=== PATIENT | male | born 1960 | race Caucasian/White ===

== ENCOUNTER 2022-02-08 20:44 | Inpatient (IN) | payer OTHER, SELFPAY ==
[2022-02-08 23:21] VITALS: BMI 24.7
[2022-02-09] MEDS ORDERED: Ondansetron PF 4 MG/2 ML Vial IVP PRN (01:43)
[2022-02-09] MEDS ORDERED: Piperacillin/Tazobactam 3.375 GM in Sodium Chloride 0.9% 100 ML IVPB SCH (02:00)
[2022-02-09] MEDS ORDERED: Vancomycin HCl 500 MG in Sodium Chloride 0.9% 100 ML IVPB SCH (03:00)
[2022-02-09 04:53] LABS: Anion Gap 15 mmol/L (10-20); BUN (Urea Nitrogen) 16 mg/dL (8.4-25.7); Calc. Creatinine Clearance 144 mL/min (70-130); Calcium 9.2 mg/dL (7.8-10.44); Carbon Dioxide 23 mmol/L (23-31); Chloride 103 mmol/L (98-107); Estimated GFR 111; Glucose 108 mg/dL (80-115); Potassium 3.6 mmol/L (3.5-5.1); Sodium 137 mmol/L (136-145)
[2022-02-09] MEDS: Piperacillin/Tazobactam 3.375 GM in Sodium Chloride 0.9% 100 ML IVPB SCH ×3 (06:00→21:28)
[2022-02-09] MEDS: Vancomycin 1.5 GRAM/300 ML BAG 1.5 GM in Premix Bag 1 BAG IVPB SCH ×2 (06:02→18:31)
[2022-02-09 06:09] LABS: Anisocytosis SLIGHT = 6-15 cells (100X) (0-5/hpf); Band 8 % (5-11); Hemoglobin 8.3 g/dL (14.0-18.0); Lymphocytes 9 % (21-51); MDiff Complete? YES; Mean Corpuscular HGB CONC 29.2 g/dL (32.0-36.0); Mean Corpuscular Hemoglobin 20.7 pg (27.0-31.0); Mean Corpuscular Volume 70.8 fL (78.0-98.0); Monocytes 2 % (0-10); Neutrophil 81 % (42-75); Platelet Count 832 thou/uL (130-400); Platelet Morphology Comment Appears Increased; RBC Distribution Width 15.3 % (11.5-14.5); Red Blood Cell (RBC) Count 3.99 mill/uL (4.70-6.10); White Blood Cell (WBC) Count 26.6 thou/uL (4.8-10.8)
[2022-02-09] MEDS ORDERED: Enoxaparin Sodium 40 MG/0.4 ML SYRINGE SC SCH (09:00)
[2022-02-09] MEDS: Tuberculin PPD 0.1 ML VIAL I-DERMAL SCH (09:15)
[2022-02-09] MEDS ORDERED: Cefepime 2 GM in Sodium Chloride 0.9% 100 ML IVPB SCH (10:00)
[2022-02-09] MEDS ORDERED: Lidocaine 1% (PF) 30 ML VIAL NERVE BLCK SCH (10:30)
[2022-02-09 10:47] LABS: Fluid, pH - Pleural Fld Greater than 7.50 (7.60 - 7.66)
[2022-02-09 11:30] LABS: Pleural Fluid, Protein 4.1 g/dL
[2022-02-09 11:36] LABS: RBC Count-Automated (BF) 10685 /cu.mm; WBC/Nucleated-Auto (BF) 1761 /cu.mm
[2022-02-09 11:39] LABS: BF Color Pink; Body Fluid Source Thoracentesis Fluid; Clarity Hazy (Clear); Tube # EDTA
[2022-02-09] MEDS ORDERED: Vancomycin 1.5 GRAM/300 ML BAG 1.5 GM in Premix Bag 1 BAG IVPB SCH (12:00)
[2022-02-09 12:13] LABS: BF Segmented Neutrophils 75 %; Cell Count Non Hematic 6 %; Lymphocytes 19 %
[2022-02-09 17:30] LABS: Hep C IgG Ab Non-Reactive (NonReactive); Hep C Index 0.17 S/CO (0-0.79)
[2022-02-09 18:38] LABS: Syphilis Antibody Nonreactive (Nonreactive); Syphilis Antibody Index 0.37 S/CO (<1.00 Non-Reactive)
[2022-02-09] MEDS: Acetaminophen 325 MG TAB PO PRN (21:33)
[2022-02-10 04:47] LABS: INR-International Normal Ratio 1.3; PTT 40.1 sec (22.9-36.1); Prothrombin Time 16.6 sec (12.0-14.7)
[2022-02-10 05:04] LABS: Anion Gap 15 mmol/L (10-20); BUN (Urea Nitrogen) 15 mg/dL (8.4-25.7); Calc. Creatinine Clearance 161 mL/min (70-130); Calcium 9.3 mg/dL (7.8-10.44); Carbon Dioxide 23 mmol/L (23-31); Chloride 102 mmol/L (98-107); Estimated GFR 115; Glucose 100 mg/dL (80-115); Potassium 3.5 mmol/L (3.5-5.1); Sodium 136 mmol/L (136-145)
[2022-02-10 05:11] LABS: Band 2 % (5-11); Hemoglobin 9.1 g/dL (14.0-18.0); Hypochromia SLIGHT = 6-15 cells (100X) (0-5/hpf); Lymphocytes 2 % (21-51); MDiff Complete? YES; Mean Corpuscular Hemoglobin 20.4 pg (27.0-31.0); Mean Corpuscular Volume 70.3 fL (78.0-98.0); Mean Platelet Volume 6.2 fL (7.4-10.4); Microcytosis SLIGHT = 6-15 cells (100X) (0-5/hpf); Monocytes 2 % (0-10); Neutrophil 94 % (42-75); Platelet Count 863 thou/uL (130-400); Platelet Morphology Comment Appears Increased; RBC Distribution Width 15.6 % (11.5-14.5); Red Blood Cell (RBC) Count 4.44 mill/uL (4.70-6.10); White Blood Cell (WBC) Count 30.1 thou/uL (4.8-10.8)
[2022-02-10 05:17] LABS: HIV (1/2) Antibody/Antigen Non-Reactive (NonReactive); HIV 1/2 INDEX 0.17 S/CO (<1.00)
[2022-02-10] MEDS: Piperacillin/Tazobactam 3.375 GM in Sodium Chloride 0.9% 100 ML IVPB SCH ×3 (05:37→22:11)
[2022-02-10] MEDS: Vancomycin 1.5 GRAM/300 ML BAG 1.5 GM in Premix Bag 1 BAG IVPB SCH (05:52)
[2022-02-10] MEDS ORDERED: VANCOMYCIN 1.25 GM/250 ML BAG 1.25 GM in Premix Bag 1 BAG IVPB SCH (06:00)
[2022-02-10] MEDS: Acetaminophen 325 MG TAB PO PRN ×2 (06:05→16:24)
[2022-02-10] MEDS: Enoxaparin Sodium 40 MG/0.4 ML SYRINGE SC SCH (09:01)
[2022-02-10] MEDS: Tuberculin PPD 0.1 ML VIAL I-DERMAL SCH (09:04)
[2022-02-10] MEDS: VANCOMYCIN 1.25 GM/250 ML BAG 1.25 GM in Premix Bag 1 BAG IVPB SCH ×2 (14:13→22:11)
[2022-02-11] MEDS: Acetaminophen 325 MG TAB PO PRN ×3 (00:14→21:23)
[2022-02-11 05:51] LABS: Anion Gap 15 mmol/L (10-20); BUN (Urea Nitrogen) 14 mg/dL (8.4-25.7); Calc. Creatinine Clearance 142 mL/min (70-130); Calcium 9.2 mg/dL (7.8-10.44); Carbon Dioxide 25 mmol/L (23-31); Chloride 102 mmol/L (98-107); Estimated GFR 110; Glucose 110 mg/dL (80-115); Potassium 3.2 mmol/L (3.5-5.1); Sodium 139 mmol/L (136-145); Vancomycin, Trough 15.3 ug/mL
[2022-02-11] MEDS: VANCOMYCIN 1.25 GM/250 ML BAG 1.25 GM in Premix Bag 1 BAG IVPB SCH (06:27)
[2022-02-11] MEDS: Piperacillin/Tazobactam 3.375 GM in Sodium Chloride 0.9% 100 ML IVPB SCH ×3 (06:28→21:32)
[2022-02-11 06:49] LABS: Band 13 % (5-11); Hemoglobin 9.3 g/dL (14.0-18.0); Lymphocytes 5 % (21-51); MDiff Complete? YES; Mean Corpuscular HGB CONC 28.9 g/dL (32.0-36.0); Mean Corpuscular Hemoglobin 20.6 pg (27.0-31.0); Mean Corpuscular Volume 71.1 fL (78.0-98.0); Mean Platelet Volume 6.5 fL (7.4-10.4); Monocytes 1 % (0-10); Neutrophil 81 % (42-75); Platelet Count 852 thou/uL (130-400); Platelet Morphology Comment Appears Increased; RBC Distribution Width 15.7 % (11.5-14.5); Red Blood Cell (RBC) Count 4.49 mill/uL (4.70-6.10); White Blood Cell (WBC) Count 29.7 thou/uL (4.8-10.8)
[2022-02-11] MEDS ORDERED: Potassium Chloride 20 MEQ TAB PO SCH (08:00)
[2022-02-11] MEDS: Enoxaparin Sodium 40 MG/0.4 ML SYRINGE SC SCH (08:40)
[2022-02-11] MEDS: Multivit, Therapeutic 1 TAB PO SCH (08:40)
[2022-02-11] MEDS: Tuberculin PPD 0.1 ML VIAL I-DERMAL SCH (08:41)
[2022-02-12] MEDS: Piperacillin/Tazobactam 3.375 GM in Sodium Chloride 0.9% 100 ML IVPB SCH ×3 (05:08→21:40)
[2022-02-12 05:27] LABS: Hemoglobin 8.9 g/dL (14.0-18.0); Mean Corpuscular HGB CONC 27.8 g/dL (32.0-36.0); Mean Corpuscular Hemoglobin 19.9 pg (27.0-31.0); Mean Corpuscular Volume 71.6 fL (78.0-98.0); Mean Platelet Volume 6.3 fL (7.4-10.4); Platelet Count 842 thou/uL (130-400); RBC Distribution Width 15.9 % (11.5-14.5); White Blood Cell (WBC) Count 31.4 thou/uL (4.8-10.8)
[2022-02-12 05:46] LABS: Anion Gap 15 mmol/L (10-20); BUN (Urea Nitrogen) 15 mg/dL (8.4-25.7); Calc. Creatinine Clearance 152 mL/min (70-130); Calcium 9.5 mg/dL (7.8-10.44); Carbon Dioxide 25 mmol/L (23-31); Chloride 100 mmol/L (98-107); Estimated GFR 113; Glucose 99 mg/dL (80-115); Potassium 3.3 mmol/L (3.5-5.1); Sodium 137 mmol/L (136-145)
[2022-02-12] MEDS: Tuberculin PPD 0.1 ML VIAL I-DERMAL SCH (08:32)
[2022-02-12] MEDS: Multivit, Therapeutic 1 TAB PO SCH (08:33)
[2022-02-12] MEDS: Acetaminophen 325 MG TAB PO PRN ×2 (08:49→19:39)
[2022-02-12] MEDS ORDERED: Lidocaine 4% PF 5 ML AMP NEB SCH (11:00)
[2022-02-12] MEDS: Sodium Chloride 0.9% 1,000 ML IV SCH (14:53)
[2022-02-12] MEDS ORDERED: Sodium Bicarbonate 2.5 MEQ/5 ML VIAL ONE (15:10)
[2022-02-12] MEDS ORDERED: Fentanyl 100 MCG/2 ML VIAL ONE (15:11)
[2022-02-12] MEDS ORDERED: Midazolam HCl 2 mg/2 ml Vial ONE (15:11)
[2022-02-13] MEDS: Sodium Chloride 0.9% 1,000 ML IV SCH (06:30)
[2022-02-13] MEDS: Piperacillin/Tazobactam 3.375 GM in Sodium Chloride 0.9% 100 ML IVPB SCH ×3 (06:30→21:07)
[2022-02-13 06:44] LABS: Anion Gap 13 mmol/L (10-20); BUN (Urea Nitrogen) 14 mg/dL (8.4-25.7); Calc. Creatinine Clearance 168 mL/min (70-130); Calcium 9.2 mg/dL (7.8-10.44); Carbon Dioxide 26 mmol/L (23-31); Chloride 101 mmol/L (98-107); Estimated GFR 116; Glucose 112 mg/dL (80-115); Potassium 3.1 mmol/L (3.5-5.1); Sodium 137 mmol/L (136-145)
[2022-02-13 06:46] LABS: Hemoglobin 8.5 g/dL (14.0-18.0); Mean Corpuscular Hemoglobin 20.6 pg (27.0-31.0); Mean Corpuscular Volume 71.1 fL (78.0-98.0); Mean Platelet Volume 6.3 fL (7.4-10.4); Platelet Count 810 thou/uL (130-400); RBC Distribution Width 15.5 % (11.5-14.5); Red Blood Cell (RBC) Count 4.13 mill/uL (4.70-6.10)
[2022-02-13 06:57] LABS: Band 8 % (5-11); Lymphocytes 1 % (21-51); MDiff Complete? YES; Monocytes 5 % (0-10); Neutrophil 86 % (42-75); Platelet Morphology Comment Appears Adequate
[2022-02-13] MEDS: Multivit, Therapeutic 1 TAB PO SCH (08:06)
[2022-02-13] MEDS: Enoxaparin Sodium 40 MG/0.4 ML SYRINGE SC SCH ×2 (08:06→13:59)
[2022-02-13] MEDS ORDERED: fentaNYL Citrate/PF 100 MCG/2 ML SYRINGE ONE (10:55)
[2022-02-13] MEDS ORDERED: Ondansetron PF 4 MG/2 ML Vial ONE (11:30)
[2022-02-13] MEDS ORDERED: Succinylcholine 200 MG/10 ml SYRINGE FS ONE (11:30)
[2022-02-13] MEDS ORDERED: PROPOFOL 200 MG/20 ML VIAL ONE (11:30)
[2022-02-13] MEDS ORDERED: Albuterol Sulfate 1.25 MG/3 ML NEB ONE (12:17)
[2022-02-13] MEDS ORDERED: Albuterol Sulfate 2.5 mg/3 ml Neb ONE (12:17)
[2022-02-13] MEDS ORDERED: Ondansetron HCl/PF 4 MG/2 ML Vial IVP PRN (12:35)
[2022-02-13] MEDS ORDERED: Promethazine HCl 25 MG/ML VIAL IM PRN (12:35)
[2022-02-13] MEDS ORDERED: Promethazine HCl 25 MG/ML VIAL IVPB PRN (12:35)
[2022-02-13] MEDS: Potassium Chloride 20 MEQ TAB PO SCH ×2 (13:59→17:16)
[2022-02-13] MEDS: Acetaminophen 325 MG TAB PO PRN ×2 (13:59→22:21)
[2022-02-13 19:53] LABS: Body Fluid Source Abscess Fluid
[2022-02-13 19:54] LABS: BF Color Red; Clarity Cloudy/Turbid (Clear); Tube # SYRINGE
[2022-02-14] MEDS: Sodium Chloride 0.9% 1,000 ML IV SCH ×2 (03:00→20:02)
[2022-02-14] MEDS: Piperacillin/Tazobactam 3.375 GM in Sodium Chloride 0.9% 100 ML IVPB SCH ×3 (06:15→21:06)
[2022-02-14 09:30] LABS: Mean Corpuscular HGB CONC 27.2 g/dL (32.0-36.0); Mean Corpuscular Hemoglobin 19.4 pg (27.0-31.0); Mean Corpuscular Volume 71.1 fL (78.0-98.0); Mean Platelet Volume 6.6 fL (7.4-10.4); Platelet Count 901 thou/uL (130-400); RBC Distribution Width 15.9 % (11.5-14.5); Red Blood Cell (RBC) Count 4.65 mill/uL (4.70-6.10)
[2022-02-14 09:31] LABS: Anion Gap 13 mmol/L (10-20); BUN (Urea Nitrogen) 11 mg/dL (8.4-25.7); Calc. Creatinine Clearance 152 mL/min (70-130); Calcium 9.7 mg/dL (7.8-10.44); Carbon Dioxide 29 mmol/L (23-31); Chloride 101 mmol/L (98-107); Estimated GFR 113; Glucose 86 mg/dL (80-115); Potassium 3.8 mmol/L (3.5-5.1); Sodium 139 mmol/L (136-145)
[2022-02-14] MEDS: Acetaminophen 325 MG TAB PO PRN ×3 (09:41→20:02)
[2022-02-14] MEDS: Multivit, Therapeutic 1 TAB PO SCH (09:42)
[2022-02-14] MEDS: Enoxaparin Sodium 40 MG/0.4 ML SYRINGE SC SCH (09:42)
[2022-02-14 11:17] LABS: Band 1 % (5-11); Hypochromia SLIGHT = 6-15 cells (100X) (0-5/hpf); Lymphocytes 5 % (21-51); MDiff Complete? YES; Microcytosis MODERATE=15-30 cells (100X) (0-5/hpf); Monocytes 2 % (0-10); Neutrophil 92 % (42-75); Platelet Morphology Comment Appears Increased; Polychromasia SLIGHT = 2-3 cells (100X) (0-2/hpf)
[2022-02-14 16:13] LABS: QuantiFERON-TB Gold Plus Negative (Negative)
[2022-02-15] MEDS: Acetaminophen 325 MG TAB PO PRN ×3 (02:57→19:24)
[2022-02-15] MEDS: Piperacillin/Tazobactam 3.375 GM in Sodium Chloride 0.9% 100 ML IVPB SCH ×3 (05:46→21:28)
[2022-02-15 06:21] LABS: #Lymphocytes 1.4 thou/uL (1.20-3.40); #Monocytes 1.2 thou/uL (0.11-0.59); #Neutrophils 19.1 thou/uL (1.40-6.50); %Basophils 0.1 % (0.0-1.0); %Eosinophils 0.2 % (0.0-10.0); %Lymphocytes 6.4 % (21.0-51.0); %Monocytes 5.6 % (0.0-10.0); %Neutrophils 87.8 % (42.0-75.0); Hemoglobin 8.6 g/dL (14.0-18.0); Mean Corpuscular HGB CONC 29.2 g/dL (32.0-36.0); Mean Corpuscular Hemoglobin 20.5 pg (27.0-31.0); Mean Corpuscular Volume 70.4 fL (78.0-98.0); Mean Platelet Volume 6.4 fL (7.4-10.4); Platelet Count 789 thou/uL (130-400); RBC Distribution Width 15.7 % (11.5-14.5); Red Blood Cell (RBC) Count 4.19 mill/uL (4.70-6.10); White Blood Cell (WBC) Count 21.8 thou/uL (4.8-10.8)
[2022-02-15 06:22] LABS: Anion Gap 12 mmol/L (10-20); BUN (Urea Nitrogen) 9 mg/dL (8.4-25.7); Calc. Creatinine Clearance 168 mL/min (70-130); Calcium 8.9 mg/dL (7.8-10.44); Carbon Dioxide 28 mmol/L (23-31); Chloride 101 mmol/L (98-107); Estimated GFR 116; Glucose 100 mg/dL (80-115); Potassium 3.2 mmol/L (3.5-5.1); Sodium 138 mmol/L (136-145)
[2022-02-15] MEDS: Enoxaparin Sodium 40 MG/0.4 ML SYRINGE SC SCH (09:04)
[2022-02-15] MEDS: Multivit, Therapeutic 1 TAB PO SCH (09:04)
[2022-02-15] MEDS: HYDROcodone/Acetaminophen 5/325 mg Tablet PO PRN ×2 (10:47→22:23)
[2022-02-15] MEDS ORDERED: Potassium Chloride 20 MEQ TAB PO SCH (14:30)
[2022-02-15] MEDS: Sodium Chloride 0.9% 1,000 ML IV SCH (21:28)
[2022-02-16] MEDS: Acetaminophen 325 MG TAB PO PRN (05:14)
[2022-02-16] MEDS: Piperacillin/Tazobactam 3.375 GM in Sodium Chloride 0.9% 100 ML IVPB SCH ×2 (05:19→15:19)
[2022-02-16 06:49] LABS: #Basophils 0.1 thou/uL (0.0-0.2); #Lymphocytes 1.5 thou/uL (1.20-3.40); #Monocytes 1.4 thou/uL (0.11-0.59); #Neutrophils 23.3 thou/uL (1.40-6.50); %Basophils 0.3 % (0.0-1.0); %Eosinophils 0.1 % (0.0-10.0); %Lymphocytes 5.6 % (21.0-51.0); %Monocytes 5.2 % (0.0-10.0); %Neutrophils 88.8 % (42.0-75.0); Hemoglobin 8.4 g/dL (14.0-18.0); Mean Corpuscular HGB CONC 29.4 g/dL (32.0-36.0); Mean Corpuscular Hemoglobin 20.6 pg (27.0-31.0); Mean Platelet Volume 6.4 fL (7.4-10.4); Platelet Count 806 thou/uL (130-400); RBC Distribution Width 15.8 % (11.5-14.5); White Blood Cell (WBC) Count 26.2 thou/uL (4.8-10.8)
[2022-02-16 06:52] LABS: Anion Gap 13 mmol/L (10-20); BUN (Urea Nitrogen) 8 mg/dL (8.4-25.7); Calc. Creatinine Clearance 155 mL/min (70-130); Calcium 9.6 mg/dL (7.8-10.44); Carbon Dioxide 28 mmol/L (23-31); Chloride 101 mmol/L (98-107); Estimated GFR 113; Glucose 94 mg/dL (80-115); Potassium 3.6 mmol/L (3.5-5.1); Sodium 138 mmol/L (136-145)
[2022-02-16] MEDS: Multivit, Therapeutic 1 TAB PO SCH (08:33)
[2022-02-16] MEDS: Enoxaparin Sodium 40 MG/0.4 ML SYRINGE SC SCH (08:33)
[2022-02-16 15:16] VITALS: BP 160/72; TEMP 98
== END 2022-02-16 15:44 | disposition home or self-care (01) | DRG 177 ==
LOC: 2SW 21:58 → T4-B 02-12 14:42
PROVIDERS: ADMIT Internal Medicine; ATTEND Internal Medicine
PROC: 0W993ZZ Drainage of Right Pleural Cavity, Percutaneous Approach (ICD-10-PCS; 2022-02-08)
PROC: 0F923ZZ Drainage of Left Lobe Liver, Percutaneous Approach (ICD-10-PCS; 2022-02-12)
PROC: 0B938ZZ Drainage of Right Main Bronchus, Via Natural or Artificial Opening Endoscopic (ICD-10-PCS; principal; 2022-02-13)
PROC: 0BB38ZZ Excision of Right Main Bronchus, Via Natural or Artificial Opening Endoscopic (ICD-10-PCS; 2022-02-13)
DX: J86.9 Pyothorax without fistula (principal); K75.0 Abscess of liver; J18.9 Pneumonia, unspecified organism; C78.7 Secondary malignant neoplasm of liver and intrahepatic bile duct; C34.01 Malignant neoplasm of right main bronchus; J90 Pleural effusion, not elsewhere classified; C79.31 Secondary malignant neoplasm of brain; Z51.5 Encounter for palliative care; Z20.822 Contact with and (suspected) exposure to COVID-19; I10 Essential (primary) hypertension; F17.210 Nicotine dependence, cigarettes, uncomplicated; D75.838 Other thrombocytosis; F10.10 Alcohol abuse, uncomplicated; R13.10 Dysphagia, unspecified
CPT/HCPCS: 36415; 47010; 70553; 77002; 80048; 80202; 82150; 82945; 83615; 83986; 84157; 84478; 85025; 85027; 85060; 85610; 85730; 86480; 86580; 86780; 86803; 87070; 87077; 87102; 87116; 87186; 87205; 87206; 87324; 87389; 87449; 88112; 88305; 88312; 88341; 88342; 89051; 93005; 93010; C1729; J1650; J2001; J2250; J2405; J2543; J2704; J3010; J3370; J3490; J7050; J7611

== ENCOUNTER 2022-06-13 08:27 | Day surgery (SDC) | payer OTHER ==
[2022-06-13] MEDS ORDERED: Acetaminophen 500 MG TAB ONE (09:38)
[2022-06-13] MEDS ORDERED: diphenhydrAMINE 25 MG CAP ONE (09:38)
[2022-06-13 12:53] VITALS: BP 175/83; TEMP 97.6
== END 2022-06-13 13:16 | disposition home or self-care (01) ==
LOC: ONC/OP 08:27
PROVIDERS: ATTEND Internal Medicine Hematology & Oncology
PROC: 30233N1 Transfusion of Nonautologous Red Blood Cells into Peripheral Vein, Percutaneous Approach (ICD-10-PCS; principal; 2022-06-13)
DX: D64.9 Anemia, unspecified (principal); D69.6 Thrombocytopenia, unspecified
CPT/HCPCS: 36430; 86850; 86900; 86901; P9016

== ENCOUNTER 2022-06-25 18:53 | Emergency (ER) | payer OTHER ==
[~2022-06-25 18:53] MED LIST: Iopamidol-370 76% 500 ML 1 ML ONE
[2022-06-25 20:16] LABS: Mean Corpuscular HGB CONC 35.3 g/dL (32.0-36.0); Mean Corpuscular Hemoglobin 26.6 pg (27.0-31.0); Mean Corpuscular Volume 75.4 fl (78.0-98.0); Mean Platelet Volume 8.2 fL (7.4-10.4); Platelet Count 399 10x3/uL (130-400); RBC Distribution Width 27.7 % (11.5-14.5)
[2022-06-25 20:33] LABS: Anisocytosis MODERATE=16-30 cells (100X) (0-5/hpf); Band 33 % (5-11); Hypochromia SLIGHT = 6-15 cells (100X) (0-5/hpf); Lymphocytes 18 % (21-51); MDiff Complete? YES; Metamyelocyte 2 % (0-0); Microcytosis SLIGHT = 6-15 cells (100X) (0-5/hpf); Monocytes 13 % (0-10); Myelocyte 2 % (0-0); Neutrophil 30 % (42-75); Platelet Morphology Comment Appears Adequate; Polychromasia SLIGHT = 2-3 cells (100X) (0-2/hpf); Promyelocytes 1 % (0-0); Spherocytes SLIGHT = 1-5 cells (100X) (None Seen); Tear Drops SLIGHT = 2-5 cells (100X) (0-1/hpf); Toxic Granulation SLIGHT
[2022-06-25 20:42] LABS: ALT (SGPT) Less than 7 U/L (8-55); AST (SGOT) 13 U/L (5-34); Albumin 3.2 g/dL (3.4-4.8); Alkaline Phosphatase 128 U/L (40-110); Anion Gap 17 mmol/L (10-20); BUN (Urea Nitrogen) 24 mg/dL (8.4-25.7); Bilirubin, Total 0.6 mg/dL (0.2-1.2); Calc. Creatinine Clearance 0 mL/min (70-130); Calcium 8.4 mg/dL (7.8-10.44); Carbon Dioxide 23 mmol/L (23-31); Chloride 98 mmol/L (98-107); Estimated GFR 96; Globulin 3.9 g/dL (2.4-3.5); Glucose 163 mg/dL (80-115); Potassium 3.8 mmol/L (3.5-5.1); Protein, Total 7.1 g/dL (5.8-8.1); Sodium 134 mmol/L (136-145)
[2022-06-25] MEDS ORDERED: Vancomycin 1 GM/200 ML (FROZEN) BAG ONE (21:42)
[2022-06-25 21:54] LABS: INR-International Normal Ratio 1.1; Prothrombin Time 14.1 sec (12.0-14.7)
[2022-06-25 21:55] LABS: PTT 38.7 sec (22.9-36.1)
[2022-06-25 22:23] LABS: SARS-CoV-2 NAA Rapid Test DETECTED (NotDetected)
== END 2022-06-26 01:12 | disposition home or self-care (01) ==
LOC: ERS 18:53
DX: U07.1 COVID-19 (principal); J12.82 Pneumonia due to coronavirus disease 2019; C78.00 Secondary malignant neoplasm of unspecified lung; Z87.891 Personal history of nicotine dependence
CPT/HCPCS: 36415; 71045; 71275; 80053; 83605; 83880; 84484; 85025; 85610; 85730; 87040; 93005; 94760; 96374; J3370-JW; Q9967

== ENCOUNTER 2022-11-07 13:59 | Outpatient (CLI) | payer MEDICAID | END 2022-11-07 14:00 | disposition home or self-care (01) | LOC: SCSMRI 13:59 | PROVIDERS: ATTEND Internal Medicine Hematology & Oncology | DX: C34.81 Malignant neoplasm of overlapping sites of right bronchus and lung (principal); C78.7 Secondary malignant neoplasm of liver and intrahepatic bile duct; E83.52 Hypercalcemia; R90.82 White matter disease, unspecified | CPT/HCPCS: 70553 ==

== ENCOUNTER 2022-11-12 09:12 | Outpatient (CLI) | payer MEDICAID ==
[~2022-11-12 09:12] MED LIST changes: +Iopamidol 370 76% 100 ML VIAL ONE; -Iopamidol-370 76% 500 ML 1 ML ONE
== END 2022-11-12 09:13 | disposition home or self-care (01) ==
LOC: CT 09:12
PROVIDERS: ATTEND Internal Medicine Hematology & Oncology
DX: C34.81 Malignant neoplasm of overlapping sites of right bronchus and lung (principal); C78.7 Secondary malignant neoplasm of liver and intrahepatic bile duct; E83.52 Hypercalcemia; J86.0 Pyothorax with fistula; K76.89 Other specified diseases of liver
CPT/HCPCS: 71260; 74177; 78306; A9503; Q9967

== ENCOUNTER 2023-05-24 09:01 | Outpatient (CLI) | payer OTHER ==
[2023-05-24] MEDS ORDERED: Iopamidol 370 76% 100 ML VIAL ONE (12:58)
== END 2023-05-24 09:02 | disposition home or self-care (01) ==
LOC: CT 09:01
PROVIDERS: ATTEND Internal Medicine Hematology & Oncology
DX: C34.81 Malignant neoplasm of overlapping sites of right bronchus and lung (principal); C78.7 Secondary malignant neoplasm of liver and intrahepatic bile duct; R04.2 Hemoptysis; R91.8 Other nonspecific abnormal finding of lung field; R59.0 Localized enlarged lymph nodes
CPT/HCPCS: 71260; Q9967

== ENCOUNTER 2023-08-16 08:53 | Outpatient (CLI) | payer OTHER ==
[2023-08-16] MEDS ORDERED: Magnevist 469MG/ML 20 ML VIAL ONE (15:30)
== END 2023-08-16 08:54 | disposition home or self-care (01) ==
LOC: MRI 08:53
PROVIDERS: ATTEND Radiology Radiation Oncology
DX: C34.90 Malignant neoplasm of unspecified part of unspecified bronchus or lung (principal); C79.31 Secondary malignant neoplasm of brain; I67.89 Other cerebrovascular disease; M89.9 Disorder of bone, unspecified
CPT/HCPCS: 70553

== ENCOUNTER 2023-11-20 08:45 | Outpatient (CLI) | payer OTHER | END 2023-11-20 08:46 | disposition home or self-care (01) | LOC: PET 08:45 | PROVIDERS: ATTEND Internal Medicine Hematology & Oncology | DX: C34.81 Malignant neoplasm of overlapping sites of right bronchus and lung (principal); C78.7 Secondary malignant neoplasm of liver and intrahepatic bile duct; R91.8 Other nonspecific abnormal finding of lung field; R59.0 Localized enlarged lymph nodes | CPT/HCPCS: 78815; A9552 ==

== ENCOUNTER 2024-04-29 06:24 | Day surgery (SDC) | payer OTHER ==
[2024-04-28 10:21] VITALS: BMI 26.6
[2024-04-29] MEDS ORDERED: PROPOFOL 40 ML ONE (07:09)
[2024-04-29] MEDS ORDERED: GLYCOPYRROLATE/PF 0.2 MG/ML VIAL ONE (07:10)
[2024-04-29] MEDS ORDERED: Lidocaine 1% PF 5 ML VIAL ONE (07:10)
[2024-04-29] MEDS ORDERED: Rocuronium Bromide 10 MG/ML (10ML VIAL) ONE (08:14)
[2024-04-29] MEDS ORDERED: fentaNYL PF 100 MCG/2 ML SYRINGE ONE (08:48)
[2024-04-29] MEDS ORDERED: PHENYLEPHRINE-NS 100 MCG/ML 10 ML SYRINGE ONE (09:22)
[2024-04-29] MEDS ORDERED: Ondansetron PF 4 MG/2 ML Vial ONE (09:22)
[2024-04-29] MEDS ORDERED: Dexamethasone 4 mg/ml Vial ONE (09:22)
[2024-04-29] MEDS ORDERED: SUGAMMADEX SODIUM 200 MG/2 ML VIAL ONE (09:26)
[2024-04-29] MEDS ORDERED: Albuterol HFA (OR) 200 PUFF INH ONE (09:51)
[2024-04-29] MEDS ORDERED: Sodium Chloride For Inhalation 0.9% 3 ML NEB ONE (10:26)
[2024-04-29] MEDS ORDERED: Albuterol 2.5 MG (0.5 mL) NEB ONE (10:26)
== END 2024-04-29 11:47 | disposition home or self-care (01) ==
LOC: SDC 06:24
PROVIDERS: ATTEND Internal Medicine
PROC: 0DB68ZX Excision of Stomach, Via Natural or Artificial Opening Endoscopic, Diagnostic (ICD-10-PCS; principal; 2024-04-29)
PROC: 0BBC8ZX Excision of Right Upper Lung Lobe, Via Natural or Artificial Opening Endoscopic, Diagnostic (ICD-10-PCS; principal; 2024-04-29)
DX: R93.3 Abnormal findings on diagnostic imaging of other parts of digestive tract (principal); R13.10 Dysphagia, unspecified; C34.91 Malignant neoplasm of unspecified part of right bronchus or lung; K44.9 Diaphragmatic hernia without obstruction or gangrene; J44.9 Chronic obstructive pulmonary disease, unspecified; R84.6 Abnormal cytological findings in specimens from respiratory organs and thorax; K21.9 Gastro-esophageal reflux disease without esophagitis; Z79.51 Long term (current) use of inhaled steroids; Z79.899 Other long term (current) drug therapy; F17.200 Nicotine dependence, unspecified, uncomplicated; Z88.8 Allergy status to other drugs, medicaments and biological substances; Z87.891 Personal history of nicotine dependence
CPT/HCPCS: 88112; 88305; 88313; 88341; 88342; J1100; J2405; J2704; J3490; J7611

== ENCOUNTER 2024-05-24 22:21 | Emergency (ER) | payer MEDICARE, MEDICAID ==
[2024-05-24] MEDS ORDERED: Tranexamic Acid 1,000 MG/10 ML VIAL ONE (22:52)
[2024-05-24] MEDS ORDERED: NOREPINEPHRINE 8 MG/250 ML-D5W 250 ML ONE (22:57)
[2024-05-24 23:09] LABS: Analyzer IN Cardio ER; Base Excess (BEa) -20.2 mEq/L (-2.0 to +3.0); CO2 Tension 43.5 mmHg (35.0-45.0); Calcium, Ionized (arterial) 1.29 mmol/L (1.12-1.30); Carboxyhemoglobin (COHb) 0.4 gm% (0.0-3.0); Hematocrit-ABG 36 % (42.0-52.0); Hemoglobin (Hb) 12.4 g/dL (14.0-18.0); O2 Tension (PaO2), arterial 322.2 mmHg (> 80.0)
[2024-05-24 23:14] LABS: Puncture Site Left Radial artery
[2024-05-24 23:15] LABS: ALV-art Gradient 336.425 mmHg (0-20)
[2024-05-24 23:16] LABS: Hematocrit 34.1 % (42.0-52.0); Hemoglobin 10.3 g/dL (14.0-18.0); Mean Corpuscular HGB CONC 30.2 g/dL (32.0-36.0); Mean Corpuscular Hemoglobin 26.8 pg (27.0-31.0); Mean Corpuscular Volume 88.6 fL (78.0-98.0); Mean Platelet Volume 9.3 fL (7.4-10.4); Platelet Count 481 10x3/uL (130-400); RBC Distribution Width 15.1 % (11.5-14.5); Red Blood Cell (RBC) Count 3.85 mill/uL (4.70-6.10)
[2024-05-24] MEDS ORDERED: fentaNYL 50 mcg/mL 1 mL Vial ONE (23:16)
[2024-05-24] MEDS ORDERED: levETIRAcetam 500 MG (5 mL) VIAL ONE (23:33)
[2024-05-24 23:38] LABS: Band 2 % (5-11); Burr Cells SLIGHT = 2-5 cells HPF (0-1); Lymphocytes 12 % (21-51); Microcytosis SLIGHT = 6-15 cells HPF (0-5); Monocytes 6 % (0-10); Neutrophil 80 % (42-75); Platelet Adequacy Comment Platelets Normal; Polychromasia SLIGHT = 2-3 cells HPF (0-2)
[2024-05-24 23:48] LABS: ALT (SGPT) 13 U/L (8-55); Albumin 2.3 g/dL (3.4-4.8); Alkaline Phosphatase 137 U/L (40-110); Anion Gap 26 mmol/L (10-20); BUN (Urea Nitrogen) 26 mg/dL (8.4-25.7); Bilirubin, Total 0.5 mg/dL (0.2-1.2); Calc. Creatinine Clearance 0 mL/min (70-130); Calcium 8.8 mg/dL (7.8-10.44); Chloride 104 mmol/L (98-107); Estimated GFR 77; Globulin 5.2 g/dL (2.4-3.5); Glucose 153 mg/dL (80-115); Protein, Total 7.5 g/dL (5.8-8.1); Sodium 133 mmol/L (136-145)
[2024-05-24] MEDS ORDERED: Rocuronium Bromide 10 MG/ML (10ML VIAL) ONE (23:48)
[2024-05-24 23:50] LABS: AST (SGOT) 35 U/L (5-34); Carbon Dioxide 8 mmol/L (23-31)
[2024-05-25] MEDS ORDERED: Fentanyl CADD 100 ML IV SCH (00:15)
[2024-05-25 00:24] LABS: INR-International Normal Ratio 1.9; Prothrombin Time 22.1 sec (12.0-14.7)
[2024-05-25 00:25] LABS: PTT 49.6 sec (22.9-36.1)
[2024-05-25] MEDS ORDERED: Amiodarone 450 MG in Dextrose 5% in Water 250 ML IVPB SCH (00:45)
[2024-05-25] MEDS ORDERED: Ventilator Sedation Protocol 1 EACH FS SCH (00:45)
[2024-05-25] MEDS ORDERED: NOREPINEPHRINE 8 MG/250 ML-D5W 250 ML IVPB SCH (00:45)
[2024-05-25] MEDS ORDERED: Ondansetron PF 4 MG/2 ML Vial IVP PRN (00:47)
[2024-05-25] MEDS ORDERED: Ondansetron ODT 4 MG TAB PO PRN (00:47)
[2024-05-25] MEDS ORDERED: Acetaminophen 650 MG Suppository PR PRN (00:47)
[2024-05-25] MEDS ORDERED: Ipratropium/Albuterol 3 ML NEB NEB PRN (00:49)
[2024-05-25] MEDS ORDERED: Piperacillin/Tazobactam 4.5 GM VIAL ONE (00:49)
[2024-05-25] MEDS ORDERED: Sodium Chloride 0.9% 100 ML ONE (00:52)
[2024-05-25] MEDS ORDERED: Propofol 1,000 MG/100 ML VIAL IV PRN (01:00)
[2024-05-25] MEDS ORDERED: DISCONTINUE PREVIOUS NARCOTIC PAIN MEDICATIONS AND BENZODIAZEPINES FS SCH (01:00)
[2024-05-25] MEDS ORDERED: Morphine 2 MG/ML VIAL SLOW IVP PRN (01:00)
[2024-05-25] MEDS ORDERED: Propofol BOLUS 1,000 MG/100 ML VIAL IV PRN (01:00)
[2024-05-25] MEDS ORDERED: Lorazepam 2 MG/ML VIAL SLOW IVP PRN (01:00)
[2024-05-25] MEDS ORDERED: Fentanyl BOLUS 250 ML IVPB PRN (01:00)
[2024-05-25] MEDS ORDERED: fentaNYL 50 mcg/mL 1 mL Vial ONE (01:24)
[2024-05-25 01:25] LABS: Troponin I Less than 0.010 ng/mL (< 0.028)
[2024-05-25] MEDS ORDERED: Acetaminophen 325 MG TAB PO SCH (06:00)
[2024-05-25] MEDS ORDERED: Famotidine/PF 20 mg/2ml Vial SLOW IVP SCH (09:00)
[2024-05-25] MEDS ORDERED: Famotidine 20 MG TAB PO SCH (09:00)
[2024-05-25] MEDS ORDERED: cefTRIAXone\\ROCEPHIN 1 GM in Sodium Chloride 0.9% 100 ML IVPB SCH (20:00)
[2024-05-26 09:00] LABS: Actual Bicarbonate (HCO3a) 10.5 mEq/L (22-28); pH, Arterial 7.001 (7.35-7.45)
== END 2024-05-25 01:47 | disposition expired ==
LOC: ERS 22:21
DX: I46.9 Cardiac arrest, cause unspecified (principal); R04.2 Hemoptysis; J93.9 Pneumothorax, unspecified; R00.0 Tachycardia, unspecified
CPT/HCPCS: 31500; 32551; 36430; 36556; 36600; 51702; 71045 ×2; 80053; 82805; 83605; 83880; 84484; 85025; 85610; 85730; 86850; 86900; 86901; 86920; 92950; 92960; 93005; 94002; 96365; 96366; 96375; 99291; 99292; J1953; J2543; J3010 ×3; P9016; P9048; 36415